=== PATIENT | male | born 1985 | race Caucasian/White ===

== ENCOUNTER 2018-08-01 21:44 | Emergency (ER) | payer BC, OTHER ==
[2018-08-01] MEDS: NS 1,000 ML IV (22:20)
[2018-08-01 22:28] LABS: BASO % 0.4 % (0.0-1.0); EOS # 0.2 10^3/uL (0.0-0.50); HEMATOCRIT 48.4 % (42.0-52.0); HEMOGLOBIN 17.2 g/dl (13.5-17.5); IMMATURE GRANULOCYTE % 0.5 % (0-3.0); LYMPH # 1.1 10^3/uL (1.5-4.5); LYMPH % 13.3 % (24.0-44.0); MEAN CORPUSCULAR HGB CONC 35.5 g/dl (32.0-36.5); MEAN CORPUSCULAR VOLUME 84.5 fl (80.0-96.0); MONO # 0.8 10^3/uL (0.0-0.8); MONO % 9.2 % (0.0-5.0); NEUTROPHILS # 6.3 10^3/uL (1.8-7.7); NEUTROPHILS % 74.6 % (36.0-66.0); PLATELET COUNT, AUTOMATED 193 10^3/uL (150-450); RED BLOOD COUNT 5.73 10^6/uL (4.30-6.10); RED CELL DISTRIBUTION WIDTH 12.8 % (11.5-14.5); WHITE BLOOD COUNT 8.5 10^3/uL (4.0-10.0)
[2018-08-01 22:38] LABS: APPEARANCE, URINE CLEAR (CLEAR); BACTERIA, URINE AUTO NEGATIVE (NEGATIVE); BILIRUBIN, URINE AUTO NEGATIVE (NEGATIVE); BLOOD, URINE BLOOD 3+ (NEGATIVE); COLOR, URINE YELLOW (YELLOW); GLUCOSE, URINE (UA) AUTO NEGATIVE (NEGATIVE); KETONE, URINE AUTO TRACE mg/dL (NEGATIVE); LEUKOCYTE ESTERASE, URINE AUTO NEGATIVE (NEGATIVE); NITRITE, URINE AUTO NEGATIVE (NEGATIVE); PROTEIN, URINE AUTO 1+ mg/dL (NEGATIVE); RBC, URINE AUTO TNTC /HPF (0-3); SPECIFIC GRAVITY URINE AUTO 1.003 (1.002-1.035); SQUAMOUS EPITHELIAL CELL UR AU 0 /HPF (0-6); UROBILINOGEN, URINE AUTO 0.2 mg/dL (0.0-2.0); WBC, URINE AUTO 8 /HPF (0-3)
[2018-08-01 22:54] LABS: ALBUMIN/GLOBULIN RATIO 1.47 (1.00-1.93); ALKALINE PHOSPHATASE 127 U/L (45-117); ALT/SGPT 46 U/L (12-78); ANION GAP 8 MEQ/L (8-16); AST/SGOT 39 U/L (7-37); BILIRUBIN,DIRECT 0.3 MG/DL (0.0-0.2); BLOOD UREA NITROGEN 13 MG/DL (7-18); CARBON DIOXIDE LEVEL 28 MEQ/L (21-32); CHLORIDE LEVEL 98 MEQ/L (98-107); CREATININE FOR GFR 1.22 MG/DL (0.70-1.30); GLOMERULAR FILTRATION RATE > 60.0 (>60); GLUCOSE, FASTING 93 MG/DL (70-100); LIPASE 92 U/L (73-393); POTASSIUM SERUM 3.3 MEQ/L (3.5-5.1); SODIUM LEVEL 134 MEQ/L (136-145); TOTAL PROTEIN 8.4 GM/DL (6.4-8.2)
[2018-08-01] MEDS: KETOROLAC 30 MG/ML VIAL (J1885) IV (23:38)
[2018-08-02] MEDS: TAMSULOSIN 0.4 MG CAP PO (01:15)
[2018-08-02] MEDS: NORCO 5/325MG TABLET (BULK FOR ED) PO (01:15)
[2018-08-02] MEDS: LISINOPRIL 5 MG TAB PO (01:43)
== END 2018-08-02 01:43 | disposition home or self-care (01) ==
LOC: M ED 08-02 01:43
DX: N13.30 Unspecified hydronephrosis (principal); N20.1 Calculus of ureter; I10 Essential (primary) hypertension; Z79.899 Other long term (current) drug therapy
CPT/HCPCS: J1885

== ENCOUNTER → 2018-08-06 | Outpatient (CLI) | payer BC ==
[~2018-08-06] MED LIST: FLOM0.4C39 PO; IBUP-1022 PO; LISI-542 PO; NORCOTAB PO
[2018-08-06 12:48] LABS: HEMATOCRIT 43.4 % (42.0-52.0); HEMOGLOBIN 15.2 g/dl (13.5-17.5); MEAN CORPUSCULAR HEMOGLOBIN 29.7 pg (27.0-33.0); MEAN CORPUSCULAR VOLUME 84.8 fl (80.0-96.0); PLATELET COUNT, AUTOMATED 188 10^3/uL (150-450); RED BLOOD COUNT 5.12 10^6/uL (4.30-6.10); WHITE BLOOD COUNT 7.4 10^3/uL (4.0-10.0)
[2018-08-06 12:52] LABS: INR 0.88; PARTIAL THROMBOPLASTIN TIME 29.1 SECONDS (25.4-37.6)
[2018-08-06 12:54] LABS: CREATININE FOR GFR 1.18 MG/DL (0.70-1.30); GLOMERULAR FILTRATION RATE > 60.0 (>60)
[2018-08-06 13:15] LABS: APPEARANCE, URINE CLEAR (CLEAR); BACTERIA, URINE AUTO NEGATIVE (NEGATIVE); BILIRUBIN, URINE AUTO NEGATIVE (NEGATIVE); BLOOD, URINE BLOOD 2+ (NEGATIVE); COLOR, URINE STRAW (YELLOW); GLUCOSE, URINE (UA) AUTO NEGATIVE (NEGATIVE); KETONE, URINE AUTO NEGATIVE (NEGATIVE); LEUKOCYTE ESTERASE, URINE AUTO NEGATIVE (NEGATIVE); MUCUS, URINE SMALL (NEGATIVE); NITRITE, URINE AUTO NEGATIVE (NEGATIVE); PROTEIN, URINE AUTO NEGATIVE (NEGATIVE); RBC, URINE AUTO 43 /HPF (0-3); SPECIFIC GRAVITY URINE AUTO 1.008 (1.002-1.035); SQUAMOUS EPITHELIAL CELL UR AU 0 /HPF (0-6); UROBILINOGEN, URINE AUTO 0.2 mg/dL (0.0-2.0); WBC, URINE AUTO 2 /HPF (0-3)
--- NOTE | 2018-08-07 03:30 | REP ---
Clinical: Preoperative assessment. Nephrolithiasis . Comparison: None . Technique: PA and lateral. Findings: The mediastinum and cardiac silhouette are normal. The lung rendon are clear and without acute consolidation, effusion, or pneumothorax. The skeletal structures are intact and normal. Evidence of prior left clavicle repair. Impression: 1. No acute cardiopulmonary process. Electronically Signed by Jaime Graves MD 08/07/2018 03:21 A
[2018-08-07 06:34] LABS: BLOOD UREA NITROGEN 17 MG/DL (7-18); CALCIUM LEVEL 8.2 MG/DL (8.5-10.1); CARBON DIOXIDE LEVEL 28 MEQ/L (21-32); CHLORIDE LEVEL 101 MEQ/L (98-107); GLUCOSE, FASTING 85 MG/DL (70-100); POTASSIUM SERUM 4.2 MEQ/L (3.5-5.1); SODIUM LEVEL 137 MEQ/L (136-145)
--- NOTE | 2018-08-07 08:48 | ECGEPIP ---
Stationary ECG Study [facility] Test Date: 2018-08-06 Pat Name: ANDRIA NGUYEN Department: Room: - Gender: M Organizational Development Consultant: : [id number] Requested By: Adelaida MENENDEZ Order Number: [id number] Reading MD: Geoff Milligan Measurements Intervals [place] Rate: 74 P: 62 WY: 166 QRS: 26 QRSD: 93 T: -45 QT: 372 QTc: 414 Interpretive Statements SINUS RHYTHM ST ELEVATION, PROBABLY EARLY REPOLARIZATION MODERATE T-WAVE ABNORMALITY, CONSIDER INFERIOR ISCHEMIA NO PRIOR Electronically Signed On 08-07-2018 8:48:26 EST by Geoff Milligan
== END ==
LOC: M LAB 11:13
PROVIDERS: ATTEND Nurse Practitioner Women's Health
DX: Z01.818 Encounter for other preprocedural examination (principal); N20.0 Calculus of kidney

== ENCOUNTER → 2018-08-16 | Outpatient (REF) | payer BC | LOC: M SFHCPLAZ 15:56 | DX: I10 Essential (primary) hypertension (principal) ==

== ENCOUNTER → 2018-08-17 | Outpatient (REF) | payer BC ==
[2018-08-17 14:20] LABS: CHOLESTEROL RISK RATIO 2.587 (<5)
== END ==
LOC: M SFHCPLAZ 10:48
DX: I10 Essential (primary) hypertension (principal)

== ENCOUNTER → 2018-08-23 | Outpatient (REF) | payer BC ==
[2018-08-23 16:22] LABS: BLOOD UREA NITROGEN 26 MG/DL (7-18); CALCIUM LEVEL 9.1 MG/DL (8.5-10.1); CARBON DIOXIDE LEVEL 33 MEQ/L (21-32); CHLORIDE LEVEL 97 MEQ/L (98-107); CREATININE FOR GFR 1.41 MG/DL (0.70-1.30); GLOMERULAR FILTRATION RATE > 60.0 (>60); GLUCOSE, FASTING 90 MG/DL (70-100); POTASSIUM SERUM 4.4 MEQ/L (3.5-5.1); SODIUM LEVEL 133 MEQ/L (136-145)
== END ==
LOC: M SFHCPLAZ 14:23
DX: I10 Essential (primary) hypertension (principal)

== ENCOUNTER → 2018-08-31 | Outpatient (CLI) | payer BC ==
[~2018-08-31] MED LIST changes: +AMLO5TAB6 PO; +CHLO125TA PO; +CHLO25TA PO; +LISI-538 PO
[2018-08-31 14:34] LABS: BLOOD UREA NITROGEN 17 MG/DL (7-18); CALCIUM LEVEL 9.4 MG/DL (8.5-10.1); CARBON DIOXIDE LEVEL 32 MEQ/L (21-32); CHLORIDE LEVEL 100 MEQ/L (98-107); CREATININE FOR GFR 1.19 MG/DL (0.70-1.30); GLOMERULAR FILTRATION RATE > 60.0 (>60); GLUCOSE, FASTING 100 MG/DL (70-100); POTASSIUM SERUM 4.2 MEQ/L (3.5-5.1); SODIUM LEVEL 136 MEQ/L (136-145)
--- NOTE | 2018-08-31 14:56 | REP ---
RENAL ULTRASOUND COMPLETE: 08/31/2018. COMPARISON: CT abdomen/pelvis, 08/01/2018. CLINICAL HISTORY: Hypertension, unspecified. Known bilateral renal stones. FINDINGS: The right kidney measures 10.6 x 4.9 x 6.4 cm. It has normal cortical thickness and echogenicity. I see no hydronephrosis or hydroureter. No solid or cystic mass. There are multiple stones bilaterally in the upper pole is a 7 x 6 mm stone and peripherally in the interpolar region and 9 x 7 mm stone. The lower pole is a 7 x 5 mm stone. The left kidney measured 11.6 x 4.7 x 6.1 cm with normal cortical thickness and echogenicity. There is a column of Tejinder evident. Multiple renal stones are again seen as on the CT last month. Peripherally in the interpolar region, a 6 x 3 mm stone and also peripherally and laterally at the junction of the interpolar and lower pole region of the left is a 1 x 7 x 6 mm stone. There is a 6 x 5 mm stone at the UVJ on the left with that portion of the distal ureter demonstrating dilatation just above the UVJ where the stone is present. No hydronephrosis evident in the kidney. The bladder is well filled. No ureteral jets were observed, however. There is no visible stone, wall thickening, or mass within the bladder. No debris evident. IMPRESSION: 1. There is a partially obstructing 6 x 5 mm stone in the distal left ureter at the UVJ with some dilatation of that ureter just above. The proximal ureter and intrarenal collecting system on the left are without dilatation. There are multiple stones within both kidneys as described in detail above. No other significant finding. Electronically Signed by Akil Fernandez MD 08/31/2018 05:03 P
--- NOTE | 2018-09-03 10:21 | ECHO ---
DATE OF STUDY: 08/31/2018 REFERRING PHYSICIAN: Dr. Hayes INDICATION: Unequal blood pressure in the extremities. Systemic hypertension. HEIGHT: 172 cm. WEIGHT: 78 kg. 2-D MEASUREMENTS: Ventricular septum: 1.05 cm Posterior wall: 1.09 cm Left ventricle diastole: 4.8 cm Aortic annulus: 2.0 cm Left atrium: 3.6 cm Aortic root: 3.1 cm Left atrial volume index: 21 Inferior vena cava: 1.0 cm DOPPLER MEASUREMENTS: Aortic valve velocity: 121 cm/sec LVOT velocity: 85.0 cm/sec LVOT VTI: 17.0 cm Very mild mitral regurgitation within normal limits Mitral E velocity: 73.2 cm/sec Mitral A velocity: 48.5 cm/sec Mitral deceleration time: 211 ms Pulmonary artery systolic pressure 11 mmHg MITRAL ANNULAR TISSUE DOPPLER: E prime lateral: 11.0 cm/sec E prime septal: 8.7 cm/sec DESCRIPTION: The rhythm was sinus. Image quality was fair. No pericardial effusion. This was a 2-D, M-mode, color flow Doppler and pulse wave Doppler examination and included mitral annular tissue Doppler. CONCLUSIONS: 1. Normal left ventricle internal dimensions and wall thickness. Normal regional LV wall motion and wall thickening. Normal LV systolic function. LVEF 60% by visual estimate. Normal LV diastolic function. 2. No coarctation of the aorta. 3. Structurally and functionally normal 3-cuspid aortic valve. 4. Otherwise normal appearing echocardiogram-Doppler findings.
== END ==
LOC: M RAD 12:48
PROVIDERS: ATTEND Student in an Organized Health Care Education/Training Program
DX: N20.0 Calculus of kidney (principal); N20.1 Calculus of ureter; R09.89 Other specified symptoms and signs involving the circulatory and respiratory systems; H54.7 Unspecified visual loss; I10 Essential (primary) hypertension

== ENCOUNTER → 2018-09-07 | Outpatient (REF) | payer BC | LOC: M SMT 16:49 | PROVIDERS: ATTEND Urology | DX: Z01.818 Encounter for other preprocedural examination (principal); N20.0 Calculus of kidney; N39.0 Urinary tract infection, site not specified ==

== ENCOUNTER 2018-09-14 07:25 | Day surgery (SDC) | payer BC ==
[~2018-09-14] VITALS: Ht 172.7 cm; Wt 77.1 kg
[~2018-09-14 07:25] MED LIST changes: +LR 1,000 ML IV SCH
[2018-09-14] MEDS ORDERED: MIDAZOLAM INJ 2 MG/2 ML VIAL (J2250) As Ordered ONE (08:00)
[2018-09-14] MEDS ORDERED: fentaNYL 250 MCG/5 ML INJECTION (J3010) As Ordered ONE (08:00)
[2018-09-14] MEDS ORDERED: LIDOCAINE 2% INJ 100 MG/5 ML SDV (FOR ANES.) As Ordered ONE (08:00)
[2018-09-14] MEDS ORDERED: PROPOFOL 200 MG/20 ML VIAL As Ordered ONE (08:00)
[2018-09-14] MEDS ORDERED: CONRAY-60 60% 50ML VIAL (Q9961) As Ordered ONE (09:59)
[2018-09-14] MEDS ORDERED: dexameTHASONE 4 MG/ML 1ML VIAL (J1100) As Ordered ONE (10:08)
[2018-09-14] MEDS ORDERED: PHENYLephrine HCL 500 MCG/5 ML (100MCG/ML) SYRINGE (J2370) As Ordered ONE (10:09)
[2018-09-14] MEDS ORDERED: ePHEDrine SULFATE 25 MG/5 ML(5MG/ML) SYRINGE As Ordered ONE ×2 (10:13→11:13)
[2018-09-14] MEDS ORDERED: ONDANSETRON 4MG/2ML VIAL (J2405) As Ordered ONE (10:47)
[2018-09-14] MEDS ORDERED: METHYLENE BLUE 0.5% (5MG/ML) 10 ML AMP (PROVAYBLUE)(Q9968 PER 1MG) As Ordered ONE (11:15)
[2018-09-14] MEDS ORDERED: FUROSEMIDE 100 MG/10 ML VIAL (J1940) As Ordered ONE (11:19)
[2018-09-14] MEDS ORDERED: KETOROLAC 60 MG/2 ML VIAL (J1885) As Ordered ONE (12:08)
[2018-09-14] MEDS ORDERED: oxyBUTYnin 5 MG TAB PO PRN (12:45)
[2018-09-14] MEDS ORDERED: fentaNYL 100 MCG/2 ML INJECTION (J3010) IV PRN (12:45)
[2018-09-14] MEDS ORDERED: HYDROMORPHONE HCL 0.5 MG/ 0.5 ML SYRINGE (J1170 PER 1) IV PRN (12:45)
[2018-09-14] MEDS ORDERED: PERCOCET 5MG/325MG TAB PO PRN ×2 (12:45)
[2018-09-14] MEDS ORDERED: LR 1,000 ML IV SCH (12:45)
[2018-09-14] MEDS ORDERED: ONDANSETRON 4MG/2ML VIAL (J2405) IV PRN (12:45)
[2018-09-14] MEDS: PERCOCET 5MG/325MG TAB PO PRN ×2 (13:10→13:43)
--- NOTE | 2018-09-14 13:27 | REP ---
RETROGRADE PYELOGRAM, TWO VIEWS: HISTORY: Nephrolithiasis. Two portable radiographs were obtained with a C-ARM. Bilateral ureteral stents are present. There is one on the right and two on the left. Fluoroscopy time 38 seconds. IMPRESSION: Retrograde pyelogram as described above. Electronically Signed by Eliecer Schulte MD 09/14/2018 01:29 P
[2018-09-14 14:22] VITALS: BP 149/71
--- NOTE | 2018-09-14 19:54 | RO ---
DATE OF PROCEDURE: 09/14/2018 PREPROCEDURE DIAGNOSIS: Bilateral kidney stones. POSTPROCEDURE DIAGNOSIS: Bilateral kidney stones, left duplicated collecting system. PROCEDURE: Cystoscopy, bilateral ureteroscopy with laser lithotripsy and basket extraction of stones, bilateral retrograde pyelograms with intraoperative interpretation of images, bilateral ureteral stent placement. SURGEON: Dr. Edmond Jimenze. ASSISTANT KITCHEN MANAGER: None. ANESTHESIA: General. OPERATIVE INDICATIONS: This is a 33-year-old male who was found to have bilateral kidney stones as well as obstructing distal left ureteral stones on recent CT scan. He was brought to the operating room today for the above listed procedure. DESCRIPTION OF PROCEDURE: Patient brought to the operating room where general anesthesia was induced. Prophylactic antibiotics were infused. He was then placed in the dorsal lithotomy position and prepped and draped in the usual sterile fashion. A rigid cystoscope was inserted into the urethral meatus and advanced to the bladder. At this point a guidewire was then advanced up to the left ureteral orifice and up to the left collecting system. The wire was secured to the drape to serve as a safety wire. I then went up the left ureter with a short semi- rigid ureteroscope and within the distal ureter there was an approximately 8-9 mm stone seen. The stone was fragmented into smaller pieces with the 200 micron laser fiber. All the fragments were then removed using the basket. No additional stones were seen within the ureter. I then advanced a ureteral access sheath up into the left collecting system. I then went up the access sheath with a flexible ureteroscope. Within the left kidney, an approximately 3 mm stone was seen. The stone was then grasped with a basket and withdrawn completely. I could not see any more stones. Also of note, the left collecting system appeared to very small compared to what was seen on CT scan. This raised concern for a duplicated collecting system. A retrograde pyelogram was preformed and I confirmed a very small collecting system and this did raise concern that there I was in the upper pole moiety of a duplicated collecting system. At this point the uteroscope was removed along with the access sheath and no additional stones were seen. The wire was then utilized to advance a 6-Thai x 22-32 cm JJ ureteral stent up to the collecting system of the upper pole moiety. The wire was then removed and there were adequate curls of the stent in the left renal pelvis and in the bladder. I then searched for another ureteral orifice on the left side and I did find one just proximal and lateral to the original ureteral orifice. The wire was then advanced up the collecting system of the lower pole moiety and then a ureteral access sheath was advanced up the ureter as well. I then went up the ureteral access sheath with a flexible ureteral scope and this renal pelvis and calices appeared to be larger. Several stones were found, one approximately 6-7 mm in size. This one as well as the other stones were fragmented in smaller pieces using the 200 micron laser fiber. All the stones in the lower pole moiety were then removed using a basket. Once all of the stones were removed a retrograde pyelogram was performed and was notable for mild left hydronephrosis and no extravasation. I then withdrew the ureteroscope along with the access sheath and no stones were seen within the ureter. I then utilized the wire to advance a 6-Thai x 22-32 cm JJ ureteral stent up into the collecting system of the lower pole moiety. The wire was then removed and there were adequate curls of the stent in the renal pelvis of the lower pole moiety as well as in the bladder. At this point I turned my attention to the right side and advanced the wire up the right collecting system. A ureteral access sheath was then advanced over the wire up to the right collecting system. I then went up the ureteral access sheath with a flexible ureteroscope and within the right kidney approximately 6-7 small stones were seen. All of the stones were removed with the basket. Once I was satisfied that all the stones were removed, a retrograde pyelogram was performed and was negative for hydronephrosis and negative for extravasation. I then withdrew the ureteroscope along with the access sheath and no stones were seen within the ureter. The wire was then utilized to advance the 6-Thai x 22-32 cm JJ ureteral stent up to the right collecting system. The wire was then removed and there were adequate curls of the stent in the right renal pelvis and the bladder. The bladder was emptied of all fluids and this marked the conclusion of the procedure. The patient was then taken out of dorsal lithotomy position, awakened from anesthesia and transported to the recovery room in stable condition. ESTIMATED BLOOD LOSS: 10 mL. COMPLICATIONS: None. SPECIMENS: Kidney stones. PLAN: The patient will followup in the clinic in a few weeks for stent removal. LEON
[2018-09-20 00:09] LABS: COMMENT Note: (.); Ca Ox Monohydrate 60 % (.)
== END 2018-09-14 14:36 | disposition home or self-care (01) ==
LOC: M SDC 07:25
PROVIDERS: ATTEND Urology
DX: N20.0 Calculus of kidney (principal)
CPT/HCPCS: 52356; 74420; 82360; 88300; C1769; C1894; C2617; J0690; J1100; J1885; J1940; J2250; J2370; J2405; J3010; Q9961; Q9968

== ENCOUNTER → 2018-11-02 | Outpatient (CLI) | payer BC ==
[~2018-11-02] MED LIST changes: -LR 1,000 ML IV SCH; +PROHANCE 279.3MG/ML 15ML VIAL (A9576) As Ordered ONE
--- NOTE | 2018-11-03 07:24 | REP ---
MR BRAIN WITHOUT AND WITH CONTRAST: HISTORY: Papilledema. CONTRAST: ProHance 15 mL. Several punctate areas of increased signal intensity are present in the subcortical white matter of the frontal and parietal lobes. There is no intraparenchymal hemorrhage, infarct, mass or midline shift. The sella turcica is partially empty. There is no abnormal enhancement. The ventricular system is normal in appearance. There is no extracerebral collection. Mucosal thickening is present in the maxillary sinuses. IMPRESSION: There are several punctate areas of increased signal intensity in the subcortical white matter of the frontal and parietal lobes. This is a nonspecific finding. Electronically Signed by Eliecer Schulte MD 11/03/2018 08:09 A
--- NOTE | 2018-11-03 07:37 | REP ---
MR ORBITS WITHOUT AND WITH CONTRAST: HISTORY: Papilledema. CONTRAST: ProHance 15 mL The globes, optic nerves and rectus muscles are normal in appearance. There is no orbital lesion. There is no abnormal enhancement. The pituitary gland, cavernous sinuses, optic chiasm, and hypothalamus are normal in appearance. Minimal mucosal thickening is present in the maxillary, left ethmoid and left sphenoid sinuses. IMPRESSION: There is no orbital lesion. Unreviewed
== END ==
LOC: M RAD 14:25
PROVIDERS: ATTEND Ophthalmology
DX: H47.13 Papilledema associated with retinal disorder (principal)
CPT/HCPCS: 70543; 70553; A9576

== ENCOUNTER → 2018-11-12 | Outpatient (REF) | payer BC ==
[~2018-11-12] MED LIST changes: -PROHANCE 279.3MG/ML 15ML VIAL (A9576) As Ordered ONE
== END ==
LOC: M SFHCPLAZ 15:00
PROVIDERS: ATTEND Student in an Organized Health Care Education/Training Program
DX: R68.89 Other general symptoms and signs (principal)

== ENCOUNTER → 2019-01-11 | Outpatient (REF) | payer BC ==
[~2019-01-11] MED LIST changes: +HYDR-3715 PO; -NORCOTAB PO
== END ==
LOC: M SFHCPLAZ 15:39
PROVIDERS: ATTEND Student in an Organized Health Care Education/Training Program
DX: C44.319 Basal cell carcinoma of skin of other parts of face (principal)

== ENCOUNTER → 2019-04-16 | Outpatient (REF) | payer BC | LOC: M SFHCPLAZ 09:55 | PROVIDERS: ATTEND Dermatology | DX: L90.5 Scar conditions and fibrosis of skin (principal) ==